=== PATIENT | female | born 1955 | race African-American/Black ===

== ENCOUNTER 2017-04-01 17:48 | Emergency (ER) | payer OTHER ==
[~2017-04-01] VITALS: Ht 154.9 cm; Wt 94.8 kg
[~2017-04-01 17:48] MED LIST: COZAAR50 MG ORAL; LEVOTHYROXINE112 MCG ORAL; METFORMIN HCL500 M1 ORAL; SIMVASTATIN80 MG ORAL; triamterene PO
[2017-04-01] MEDS ORDERED: ASPIR 8181 MG ORAL (17:58)
[2017-04-01] MEDS ORDERED: CARVEDILOL3.125 MG ORAL (17:58)
[2017-04-01] MEDS ORDERED: TRIAM/HCTZ PO (17:58)
[2017-04-01 18:30] VITALS: BP 140/83
[2017-04-01] MEDS ORDERED: Ketorolac 30mg Inj IV ONE (18:30)
--- NOTE | 2017-04-01 18:38 | Emergency Room Report ---
History of Present Illness General Chief Complaint: Chest Pain Source: Patient, Medical Record Present Illness HPI [id number] walk-in with 4 days of "chest weakness" to left side of chest. Sometimes associated with numbness from left side of neck that radiates down left arm, also intermittent for "long time." Denies actual chest PAIN or SOB. Denies cough, fever/chills, abd pain. Denies asthma, COPD Recently started on carvedilol for HTN Histroy of DM, HTN, HLD. Distant history of SVT, resolved s/p ablation Allergies: Coded Allergies: No Known Allergies (Verified Allergy, Unknown, 11/05/06) Patient History Past Medical History: DM, HTN Past Surgical History: other - Cardiac ablation Pertinent Family History: none Social History: Denies: alcohol use, drug use, smoking Last Menstrual Period: 10 years ago Now: No Reviewed Nursing Documentation: PMH: Agreed Nursing Documentation-PMH Past Medical History: No History, Except For Hx Cardiac Problems: Yes - CARDIAC ABLATION DONE 10 YRS AGO Hx Hypertension: Yes Hx Diabetes: Yes Hx Cancer: No Hx Gastrointestinal Problems: No Hx Neurological Problems: No Review of Systems All Other Systems: negative except mentioned in HPI Physical Exam Vital Signs Date Time Temp Pulse Resp B/P Pulse Ox O2 Delivery O2 Flow Rate FiO2 04/01/17 17:58 98.6 69 16 138/83 100 Room Air Sp02 EP Interpretation: reviewed, normal General Appearance: normal inspection, well appearing, no apparent distress, alert, GCS 15, non-toxic Head: normocephalic, atraumatic Eyes: bilateral eye EOMI, bilateral eye PERRL ENT: normal ENT inspection, hearing grossly normal, normal voice Neck: normal inspection, full range of motion, supple, no bony tend Respiratory: normal inspection, lungs clear, normal breath sounds, no respiratory distress, no retraction, no wheezing Cardiovascular #1: normal peripheral pulses, regular rate, rhythm, no edema Gastrointestinal: normal inspection, normal bowel sounds, non tender, soft, no guarding, no hernia Genitourinary: no CVA tenderness Musculoskeletal: normal inspection, back normal, normal range of motion, Jagdeep' s Sign negative Neurologic: normal inspection, alert, oriented x3, responsive, harbour master III-XII nml as tested, motor strength/tone normal, speech normal Psychiatric: normal inspection, judgement/insight normal, mood/affect normal Skin: normal inspection Lymphatic: normal inspection Medical Decision Making Diagnostic Impression: Primary Impression: Chest pain Qualified Codes: R07.9 - Chest pain, unspecified Additional Impression: RODRÍGUEZ (acute kidney injury) ER Course Chest "weakness" for 4 days - VSS. Afebrile. Not hypoxic. - ECG with TWI in V4-6. No previous ECG to compare. - Had recent ?Echo that was "normal." - Labs: No leuks. H&H stable. No electrolyte abnormalities. Troponin 0. - Low suspicion for acute ACS given duration of 4 years, no sandy chest PAIN or SOB. - Mild elevation in serumCr. Patient denies history of CKD. - RODRÍGUEZ might be d/t losartan, metformin, plus dehdyration - Given NS IVF hydration in ED - Has Cardiology appt next week but advised to call Cardiology tomorrow morning to arrange earlier appt and re-check of CMP. Patient verbalized understanding to return to ER for worsening chest pain, SOB. EKG Diagnostic Results Rate: normal Rhythm: NSR ST Segments: other - TWI in v4-6 Other Impression LVH ASA given to the pt in ED: No Rhythm Strip Diag. Results EP Interpretation: yes Rate: 60 Rhythm: NSR, no PVC's, no ectopy Chest X-Ray Diagnostic Results Chest X-Ray Diagnostic Results : Chest X-Ray Ordered: Yes # of Views/Limited/Complete: 1 View Indication: Chest Pain EP Interpretation: Yes Interpretation: no consolidation Impression: No acute disease Interpreting ER Provider: Electronically signed by Dr Klein Last Vital Signs Date Time Temp Pulse Resp B/P Pulse Ox O2 Delivery O2 Flow Rate FiO2 04/01/17 17:58 98.6 69 16 138/83 100 Room Air Status: improved Disposition: HOME, SELF-CARE Referrals: NETO SALEH (PCP) HARJEET KLEIN M.D. Apr 01, 2017 18:38
[2017-04-01 18:58] LABS: BASOPHILS % (AUTO) 1.1 % (0.0-2.0); EOSINOPHILS % (AUTO) 1.7 % (0.0-3.0); LYMPHOCYTES % (AUTO) 43.7 % (20.0-45.0); MEAN CORPUSCULAR HGB CONC 32.5 G/DL (32.0-36.0); MEAN CORPUSCULAR VOLUME 80 FL (80-99); MEAN PLATELET VOLUME 8.6 FL (6.5-10.1); NEUTROPHILS % (AUTO) 43.4 % (45.0-75.0); PLATELET COUNT 144 K/UL (150-450); RED BLOOD COUNT 4.51 M/UL (4.20-5.40); RED CELL DISTRIBUTION WIDTH 13.7 % (11.6-14.8); WHITE BLOOD COUNT 5.1 K/UL (4.8-10.8)
[2017-04-01 19:19] LABS: TROPONIN I < 0.30 ng/mL (<=0.30)
[2017-04-01 19:24] LABS: ALBUMIN/GLOBULIN RATIO 1.4 (1.0-2.7); CALCIUM 9.9 mg/dL (8.6-10.2); CREATININE 1.7 mg/dL (0.5-0.9); GLOMERULAR FILTRATION RATE 36.7 mL/min (>60); POTASSIUM 4.8 mEQ/L (3.4-4.9); TOTAL PROTEIN 6.9 g/dL (6.6-8.7)
[2017-04-01 19:34] LABS: CKMB 1.9 ng/mL (< 3.8)
[2017-04-01 21:00] VITALS: BP 130/82
--- NOTE | 2017-04-02 10:05 | Diagnostic Imaging Report ---
Indication: Chest pain Comparison: 02/09/2008 A single view chest radiograph was obtained. Findings: Lungs are clear. Pulmonary vascularity is normal. The heart is borderline enlarged. Endplate spurs noted throughout the thoracic spine. Impression: Cardiomegaly. No acute findings
--- NOTE | 2017-04-04 17:55 | Cardiology Report ---
APPROVED REPORT EKG Measurement Heart [id number] [id number] Sinus rhythm with occasional premature ventricular complexes Minimal voltage criteria for LVH, may be normal variant T wave abnormality, consider lateral ischemia Abnormal ECG
== END 2017-04-01 21:00 | disposition home or self-care (01) ==
LOC: EMR 18:28
DX: R07.9 Chest pain, unspecified (principal); N17.9 Acute kidney failure, unspecified; E11.9 Type 2 diabetes mellitus without complications; I10 Essential (primary) hypertension
CPT/HCPCS: 36415; 71010; 80053; 82550; 82553; 84484; 85025; 93005; 96361; 96374; 99284; J1885; 96375